=== PATIENT | female | born 1990 | race Caucasian/White ===

== ENCOUNTER 2016-06-30 08:12 | Emergency (ER) | payer OTHER ==
[~2016-06-30] VITALS: Ht 160 cm; Wt 72.4 kg
[2016-06-30 08:14] VITALS: BP 122/81
[2016-06-30] MEDS ORDERED: FAMOTIDINE 20 MG/2 ML IVP ONE (08:30)
[2016-06-30] MEDS ORDERED: SODIUM CHLORIDE 0.9% 1,000 ML IV ONE (08:30)
[2016-06-30] MEDS ORDERED: ONDANSETRON 2MG/ML, 2ML IVPush ONE (08:30)
[2016-06-30] MEDS ORDERED: SODIUM CHLORIDE 0.9% 1,000ML IVBOLUS ONE (08:30)
[2016-06-30 09:00] LABS: ASPARTATE AMINO TRANSFERASE 9 U/L (15-37); BLOOD UREA NITROGEN 7 mg/dL (7-18)
[2016-06-30] MEDS ORDERED: ONDANSETRON 2MG/ML, 2ML ONE (09:00)
[2016-06-30] MEDS ORDERED: FAMOTIDINE 20 MG/2 ML ONE (09:00)
== END 2016-06-30 12:07 | disposition home or self-care (01) ==
LOC: ED 09:06
DX: A08.4 Viral intestinal infection, unspecified (principal)
CPT/HCPCS: 36415; 80053; 81003; 83690; 84703; 85025; 96361; 96374; 96375; 99284; J2405; J7030; S0028

== ENCOUNTER → 2016-11-16 | Outpatient (CLI) | payer OTHER | END | disposition home or self-care (01) | LOC: CFH 11:37 | PROVIDERS: ATTEND Registered Nurse | DX: M48.06 Spinal stenosis, lumbar region (principal); M47.896 Other spondylosis, lumbar region; M51.26 Other intervertebral disc displacement, lumbar region; M54.12 Radiculopathy, cervical region; Z98.1 Arthrodesis status; Z98.890 Other specified postprocedural states | CPT/HCPCS: 72050; 72110; 72141; 72148 ==

== ENCOUNTER → 2017-03-27 | Outpatient (CLI) | payer OTHER | END | disposition home or self-care (01) | LOC: CFH 13:13 | PROVIDERS: ATTEND Neurological Surgery | DX: M51.26 Other intervertebral disc displacement, lumbar region (principal); G89.29 Other chronic pain; Z98.890 Other specified postprocedural states | CPT/HCPCS: 72131 ==

== ENCOUNTER → 2017-04-05 | Outpatient (CLI) | payer OTHER ==
[~2017-04-05] MED LIST: DIAZ10TA PO; HYDR-3245 PO; POTA20PA25 PO
[2017-04-05 12:38] LABS: BASOPHILS # (AUTO) 0.02 x10^3/uL (0-0.1); BASOPHILS % (AUTO) 0 % (0-1); EOSINOPHILS # (AUTO) 0.02 x10^3/uL (0-0.4); EOSINOPHILS % (AUTO) 0 % (1-7); LYMPHOCYTES # (AUTO) 1.91 x10^3/uL (1-3.4); LYMPHOCYTES % (AUTO) 31 % (22-44); MD NO; MEAN CORPUSCULAR HEMOGLOBIN 31.6 pg (27.0-34.8); MEAN CORPUSCULAR HGB CONC 32.9 g/dL (32.4-35.8); MONOCYTES # (AUTO) 0.64 x10^3/uL (0.2-0.8); MONOCYTES % (AUTO) 10 % (2-9); NEUTROPHILS # (AUTO) 3.62 x10^3/uL (1.8-6.8); NEUTROPHILS % (AUTO) 58 % (42-75); PLATELET COUNT 259 x10^3/uL (130-400); RED BLOOD COUNT 4.55 x10^6/uL (3.82-5.3); RED CELL DISTRIBUTION WIDTH 12.8 % (9.6-15.2)
[2017-04-05 12:43] LABS: INTERNATIONAL NORMALIZED RATIO 1.06 (0.93-1.1); MICROSCOPIC NOT IND
[2017-04-05 12:50] LABS: CULTURE INDICATED? NO
[2017-04-05 13:04] LABS: ALANINE AMINOTRANSFERASE 19 U/L (12-78); ALBUMIN 4.7 g/dL (3.4-5.0); ANION GAP 9 mmol/L (5-15); BILIRUBIN,TOTAL 0.5 mg/dL (0.2-1.0); CALCIUM 9.5 mg/dL (8.5-10.1); CHLORIDE 104 mmol/L (98-107); CREATININE 0.82 mg/dL (0.55-1.02)
[2017-04-05 13:05] LABS: ALKALINE PHOSPHATASE 62 U/L (45-117)
== END | disposition home or self-care (01) ==
LOC: STAR 12:04
PROVIDERS: ATTEND Neurological Surgery
DX: Z01.818 Encounter for other preprocedural examination (principal)
CPT/HCPCS: 36415; 71046; 80053; 81003; 85025; 85610; 85730; 93005

== ENCOUNTER → 2017-04-05 | Outpatient (CLI) | payer OTHER ==
[~2017-04-05] MED LIST changes: +BACITRACIN 50,000 UNIT ONE; +BUPIVACAINE/PF 0.5% ONE; +EPINEPHRINE 1 MG/ML, 1ML ONE; +THROMBIN 5,000 UNIT VIAL TP ONE
== END ==
LOC: CFH 10:02
PROVIDERS: ATTEND Neurological Surgery
DX: Z02.9 Encounter for administrative examinations, unspecified (principal)
CPT/HCPCS: 71046

== ENCOUNTER 2017-04-14 05:30 | Inpatient (IN) | payer OTHER ==
[~2017-04-14] VITALS: Ht 160 cm; Wt 80.0 kg
[~2017-04-14 05:30] MED LIST changes: -BACITRACIN 50,000 UNIT ONE; -BUPIVACAINE/PF 0.5% ONE; -EPINEPHRINE 1 MG/ML, 1ML ONE; -THROMBIN 5,000 UNIT VIAL TP ONE
[2017-04-14] MEDS ORDERED: LACTATED RINGERS 1,000 ML IV SCH (06:05)
[2017-04-14 06:21] VITALS: BP 110/73
[2017-04-14] MEDS ORDERED: OXYcodone/APAP 10/325MG TABLET ONE (07:39)
[2017-04-14] MEDS ORDERED: PROMETHAZINE 25MG TABLET PO ONE (08:00)
[2017-04-14] MEDS ORDERED: OXYcodone/APAP 10/325MG TABLET PO ONE (08:00)
[2017-04-14] MEDS ORDERED: MIDAZOLAM 1 MG/ML, 2ML ONE (09:30)
[2017-04-14] MEDS ORDERED: FENTANYL PF 250 MCG/5ML ONE (09:30)
[2017-04-14] MEDS ORDERED: GLYCOPYRROLATE 0.2MG/1ML, 5ML ONE (10:41)
[2017-04-14] MEDS ORDERED: NEOSTIGMINE 1 MG/ML, 10ML ONE (10:41)
[2017-04-14] MEDS ORDERED: ONDANSETRON 2MG/ML, 2ML ONE (10:41)
[2017-04-14] MEDS ORDERED: PROPOFOL 10 MG/ML, 20ML ONE (10:41)
[2017-04-14] MEDS ORDERED: DEXAMETHASONE 4 MG/ML, 1ML ONE (10:41)
[2017-04-14] MEDS ORDERED: CEFAZOLIN 1,000 MG ONE (10:41)
[2017-04-14] MEDS ORDERED: SUCCINYLCHOLINE 20 MG/ML, 10ML ONE (10:41)
[2017-04-14] MEDS ORDERED: ROCURONIUM 10 MG/ML,10ML ONE (10:41)
[2017-04-14] MEDS ORDERED: PROMETHAZINE 12.5 MG SUPP PR PRN (12:30)
[2017-04-14] MEDS ORDERED: METOPROLOL 1 MG/ML, 5ML IV PRN (12:30)
[2017-04-14] MEDS ORDERED: LABETALOL 5MG/ML, 20ML IV PRN ×2 (12:30→17:00)
[2017-04-14] MEDS ORDERED: ONDANSETRON 2MG/ML, 2ML IVPush PRN (12:30)
[2017-04-14] MEDS ORDERED: hydrALAzine 20 MG/ML, 1ML IV PRN (12:30)
[2017-04-14] MEDS ORDERED: MEPERIDINE/PF 25MG/0.5ML IVPush PRN (12:30)
[2017-04-14] MEDS ORDERED: ALBUTEROL SULFATE 2.5 MG/3 ML NPPB PRN (12:30)
[2017-04-14] MEDS ORDERED: HYDROcodone/APAP 7.5-325MG/15ML UDC PO PRN (12:30)
[2017-04-14] MEDS ORDERED: ACETAMINOPHEN 325 MG TABLET PO PRN (12:30)
[2017-04-14] MEDS ORDERED: ALBUTEROL/IPRATROPIUM 2.5MG/0.5MG, 3 ML NPPB PRN (12:30)
[2017-04-14] MEDS ORDERED: MIDAZOLAM 1 MG/ML, 2ML IV PRN (12:30)
[2017-04-14] MEDS ORDERED: EPHEDRINE 50 MG/ML, 1ML IVPush PRN (12:30)
[2017-04-14] MEDS ORDERED: DIAZEPAM 5 MG/ML, 2ML IVPush PRN (12:30)
[2017-04-14] MEDS ORDERED: OXYcodone 5 MG/5 ML ORAL.SOL UDC PO PRN (12:30)
[2017-04-14] MEDS ORDERED: BACITRACIN 50,000 UNIT IRRIG ONE (12:33)
[2017-04-14] MEDS ORDERED: THROMBIN 5,000 UNIT VIAL TP ONE (12:33)
[2017-04-14] MEDS ORDERED: BUPIVACAINE/PF 0.5% INFIL ONE (12:34)
[2017-04-14] MEDS ORDERED: FENTANYL PF 100 MCG/2ML ONE (13:27)
[2017-04-14] MEDS ORDERED: ACETAMINOPHEN 650 MG/20.3 ML UDC ONE (13:27)
[2017-04-14] MEDS ORDERED: HYDROmorphone 2 MG/ML, 1ML ONE (13:27)
[2017-04-14] MEDS ORDERED: OXYcodone 5 MG/5 ML ORAL.SOL UDC ONE (13:28)
[2017-04-14] MEDS: HYDROmorphone 1 MG/ML, 1ML IV PRN ×4 (13:58→14:28)
[2017-04-14] MEDS: FENTANYL PF 100 MCG/2ML IV PRN ×2 (14:06→14:38)
[2017-04-14 15:04] VITALS: BP 109/68
[2017-04-14] MEDS ORDERED: ONDANSETRON 2MG/ML, 2ML IV PRN (17:00)
[2017-04-14] MEDS ORDERED: OXYcodone/APAP 10/325MG TABLET PO PRN (17:00)
[2017-04-14] MEDS ORDERED: BISACODYL 10 MG SUPP PR PRN (17:00)
[2017-04-14] MEDS ORDERED: DIAZEPAM 5 MG/ML, 2ML IV PRN (17:00)
[2017-04-14] MEDS ORDERED: DIPHENHYDRAMINE 50 MG/ML, 1ML IVPush PRN (17:00)
[2017-04-14] MEDS ORDERED: MAGNESIUM HYDROXIDE 8%, 30ML UDC PO PRN (17:00)
[2017-04-14] MEDS ORDERED: NICOTINE 14MG/24 HR PATCH.TD24 TD SCH (17:00)
[2017-04-14] MEDS ORDERED: morphine SULFATE 10 MG/ML, 1ML IV PRN (17:00)
[2017-04-14] MEDS ORDERED: PROMETHAZINE 25 MG/ML, 1ML IM PRN (17:00)
[2017-04-14] MEDS ORDERED: HYDROmorphone 2 MG/ML, 1ML IM PRN (17:00)
[2017-04-14] MEDS ORDERED: HYDROmorphone 2MG TABLET PO PRN (17:00)
[2017-04-14] MEDS ORDERED: HYDROcodone/APAP 10/325 MG TABLET PO PRN ×2 (17:00→18:00)
[2017-04-14] MEDS: NS + 20MEQ KCL 1,000 ML IV SCH (17:54)
[2017-04-14] MEDS: CEFAZOLIN PMX 1GM/50ML 50 ML IVPB SCH (17:54)
[2017-04-14 19:44] VITALS: BP 125/87
[2017-04-14] MEDS: DIAZEPAM 5 MG TABLET PO PRN (20:01)
[2017-04-14] MEDS: POTASSIUM CHLORIDE 20 MEQ TAB.ER.PRT PO SCH (21:00)
[2017-04-15 00:09] VITALS: BP 100/64
[2017-04-15] MEDS: CEFAZOLIN PMX 1GM/50ML 50 ML IVPB SCH (01:31)
[2017-04-15 04:24] VITALS: BP 107/72
[2017-04-15] MEDS: DIAZEPAM 5 MG TABLET PO PRN (04:30)
[2017-04-15 05:18] LABS: BASOPHILS # (AUTO) 0.01 x10^3/uL (0-0.1); BASOPHILS % (AUTO) 0 % (0-1); EOSINOPHILS % (AUTO) 0 % (1-7); LYMPHOCYTES % (AUTO) 9 % (22-44); MD NO; MEAN CORPUSCULAR HEMOGLOBIN 31.9 pg (27.0-34.8); MEAN CORPUSCULAR HGB CONC 33.7 g/dL (32.4-35.8); MEAN CORPUSCULAR VOLUME 94.8 fL (80-100); MEAN PLATELET VOLUME 9.4 fL (7.4-10.4); MONOCYTES # (AUTO) 1.24 x10^3/uL (0.2-0.8); MONOCYTES % (AUTO) 10 % (2-9); NEUTROPHILS # (AUTO) 10.51 x10^3/uL (1.8-6.8); NEUTROPHILS % (AUTO) 82 % (42-75); PLATELET COUNT 199 x10^3/uL (130-400); RED CELL DISTRIBUTION WIDTH 12.5 % (9.6-15.2)
[2017-04-15 05:26] LABS: ANION GAP 5 mmol/L (5-15); CALCIUM 8.4 mg/dL (8.5-10.1); CHLORIDE 109 mmol/L (98-107); CREATININE 0.65 mg/dL (0.55-1.02)
[2017-04-15] MEDS: NS + 20MEQ KCL 1,000 ML IV SCH (05:30)
[2017-04-15 08:13] VITALS: BP 122/87
[2017-04-15] MEDS: POTASSIUM CHLORIDE 20 MEQ TAB.ER.PRT PO SCH (08:24)
[2017-04-15] MEDS ORDERED: SENNA/DOCUSATE TABLET PO SCH (09:00)
== END 2017-04-15 09:10 | disposition home or self-care (01) | DRG 460 ==
LOC: ORIP 05:30 → 4NOR 14:53
PROVIDERS: ADMIT Neurological Surgery; ATTEND Neurological Surgery
PROC: 0SP30AZ Removal of Interbody Fusion Device from Lumbosacral Joint, Open Approach (ICD-10-PCS; 2017-04-14)
PROC: 0SB40ZZ Excision of Lumbosacral Disc, Open Approach (ICD-10-PCS; 2017-04-14)
PROC: 4A11X4G Monitoring of Peripheral Nervous Electrical Activity, Intraoperative, External Approach (ICD-10-PCS; 2017-04-14)
PROC: 3E0U0GB Introduction of Recombinant Bone Morphogenetic Protein into Joints, Open Approach (ICD-10-PCS; 2017-04-14)
PROC: 0SG30A0 Fusion of Lumbosacral Joint with Interbody Fusion Device, Anterior Approach, Anterior Column, Open Approach (ICD-10-PCS; principal; 2017-04-14 07:30)
DX: M96.0 Pseudarthrosis after fusion or arthrodesis (principal); G62.9 Polyneuropathy, unspecified; F12.20 Cannabis dependence, uncomplicated; G43.909 Migraine, unspecified, not intractable, without status migrainosus; K21.9 Gastro-esophageal reflux disease without esophagitis; Y83.8 Other surgical procedures as the cause of abnormal reaction of the patient, or of later complication, without mention of misadventure at the time of the procedure; M54.16 Radiculopathy, lumbar region; F17.210 Nicotine dependence, cigarettes, uncomplicated; Z88.2 Allergy status to sulfonamides; Y92.89 Other specified places as the place of occurrence of the external cause; Z82.0 Family history of epilepsy and other diseases of the nervous system; Z82.61 Family history of arthritis; Z80.9 Family history of malignant neoplasm, unspecified
CPT/HCPCS: 36415; 72100; 74018; 77002; 80048; 81025; 82962; 85025; 86850; 86900; 86923; C1713; C1776; J0690; J1100; J1170; J2250; J2270; J2405; J2704; J2710; J3010; J3480; J3490; Q0169; C1762; J0330; J7120

== ENCOUNTER → 2017-06-09 | Outpatient (CLI) | payer OTHER | LOC: CFH 12:09 | PROVIDERS: ATTEND Registered Nurse | DX: M54.5 Low back pain (principal) | CPT/HCPCS: 72100 ==